=== PATIENT | male | born 2000 | race Caucasian/White ===

== ENCOUNTER 2023-04-13 10:54 | Emergency (ER) | payer OTHER ==
[~2023-04-13] VITALS: Ht 175.3 cm; Wt 62.3 kg
[2023-04-13 14:34] LABS: HEMATOCRIT 46.9 % (42.0-52.0); HEMOGLOBIN 16.1 g/dl (13.5-17.5); MEAN CORPUSCULAR HGB CONC 34.3 g/dl (32.0-36.5); MEAN CORPUSCULAR VOLUME 87.3 fl (80.0-96.0); PLATELET COUNT, AUTOMATED 315 10^3/uL (150-450); RED BLOOD COUNT 5.37 10^6/uL (4.30-6.10); WHITE BLOOD COUNT 5.8 10^3/uL (4.0-10.0)
[2023-04-13 15:26] VITALS: BP 103/57; TEMP 97.5; O2SAT 98
== END 2023-04-13 15:27 | disposition home or self-care (01) ==
LOC: M ED 10:54
DX: R55 Syncope and collapse (principal); I49.40 Unspecified premature depolarization; F17.200 Nicotine dependence, unspecified, uncomplicated